=== PATIENT | female | born 1970 | race Caucasian/White ===

== ENCOUNTER 2020-09-28 09:40 | Emergency (ER) | payer OTHER, SELFPAY ==
[2020-09-28 09:55] VITALS: BP 119/66; PULSE 61; RESP 18; TEMP 36.6; O2SAT 98
--- NOTE | 2020-09-28 11:21 | ED.GENADULT ---
HPI - General Adult General Chief complaint: Head Injury Stated complaint: ? Head Injury/PCP sent in Time Seen by Provider: 09/28/20 10:02 Source: patient and RN notes reviewed Mode of arrival: ambulatory Limitations: no limitations History of Present Illness HPI narrative: Patient is a 50-year-old female who presents with head injury complaint that occurred a week ago patient was walking when she hit her head on a bird feeder twice striking the forehead and then hit her head again on a metal bar that they denied any loss of consciousness or syncope patient notes that she has had some mild headache does have a history of concussions denies anticoagulant use and presents in no distress and otherwise resting comfortably with no other complaints patient resting comfortably in the room in no distress is noted Related Data Home Medications Medication Instructions Recorded Confirmed escitalopram oxalate [Lexapro] 20 mg PO DAILY 09/28/20 09/28/20 Review of Systems Review of Systems: All systems reviewed & are unremarkable except as noted in HPI and below PMFSH Past Medical History Medical History (Updated 09/28/20 @ 11:24 by Irwin White PA-C) Macular degeneration Exam Narrative: Exam Narrative: GENERAL: Well-appearing, well-nourished, and in no acute distress. HEAD: Normocephalic, atraumatic. EYES: PERRLA and EOMI. ENT: Nares clear, no rhinorrhea or epistaxis. Mucous membranes moist. CHEST: Clear to auscultation. No respiratory distress. No wheezes rales or rhonchi HEART: Regular rate and rhythm. No murmur heard. EXTREMITIES: Normal range of motion. No edema. No cervical spine tenderness to palpation SKIN: Warm, dry, no rash. NEURO: No focal deficits. Alert and oriented x3. Cranial nerves II through XII grossly intact. Normal speech and gait PSYCH: Normal mood and affect. Course Course Emergency Course: Patient in the room in no distress aware of case findings treatment plan and diagnosis agreeing to follow-up as instructed felt appropriate for outpatient reevaluation ABCs and vital signs intact and stable Vital Signs Vital signs: Vital Signs Temperature 97.8 F 09/28/20 09:55 Pulse Rate 61 09/28/20 09:55 Respiratory Rate 18 09/28/20 09:55 Blood Pressure 119/66 09/28/20 09:55 Pulse Oximetry 98 09/28/20 09:55 Temperature 97.8 F 09/28/20 09:55 Pulse Rate 61 09/28/20 09:55 Respiratory Rate 18 09/28/20 09:55 Blood Pressure 119/66 09/28/20 09:55 Pulse Oximetry 98 09/28/20 09:55 Medical Decision Making MDM Narrative Medical decision making narrative: Patient with minor head injury without loss of consciousness. There are no focal neurological deficits on exam. Subarachnoid hemorrhage is felt to be unlikey at this time. There is no history of fever, and neck is supple without meningismus, making meningitis unlikely. No traumatic history or signs of trauma on exam. No risk factors for CVA, risk factors reviewed. Patient felt appropriate for outpatient reevaluation Vital Signs Vital Signs: Vital Signs Temperature 97.8 F 09/28/20 09:55 Pulse Rate 61 09/28/20 09:55 Respiratory Rate 18 09/28/20 09:55 Blood Pressure 119/66 09/28/20 09:55 Pulse Oximetry 98 09/28/20 09:55 Temperature 97.8 F 09/28/20 09:55 Pulse Rate 61 09/28/20 09:55 Respiratory Rate 18 09/28/20 09:55 Blood Pressure 119/66 09/28/20 09:55 Pulse Oximetry 98 09/28/20 09:55 Discharge Plan Discharge Clinical Impression: Closed head injury Patient Disposition: Home, Self-Care Condition: Stable Instructions: Antibiotic Form, Head Injury (ED) Additional Instructions: Follow up with your primary care doctor in 5-days for re-evaluation. Go to ER for worsening pain, vision changes, nausea/vomiting, fever/chills, weakness, chest pain, shortness of breath, numbness/tingling, slurred speech, difficulty walking, change in mental status etc. or any other concerns. Take a
== END 2020-09-28 11:29 | disposition home or self-care (01) ==
PROVIDERS: Emergency Provider Emergency Medicine; PCP Family Medicine
DX: S09.90XA Unspecified injury of head, initial encounter (principal); H35.30 Unspecified macular degeneration; W22.8XXA Striking against or struck by other objects, initial encounter
CPT/HCPCS: 99283

== ENCOUNTER 2020-10-05 08:22 | Outpatient (CLI) | payer OTHER, SELFPAY ==
--- NOTE | ~2020-10-05 | CT_ITS ---
EXAMINATION: CT brain wo con DATE: 10/05/2020 08:51 INDICATION: Right frontal head injury. Confusion. TECHNIQUE: Computed tomography (CT) of the head was performed without intravenous contrast. The mA wa s adjusted according to patient size. Iterative reconstruction technique was employed. The dose-lengt h product was 605.33 mGy-cm. COMPARISON: None FINDINGS: There is no intracranial hemorrhage, acute infarction, or abnormal intracranial mass lesion . The ventricles are normal in size. The paranasal sinuses are clear. The mastoid air cells are j carlos l. The orbits are normal. IMPRESSION: 1. Normal brain. Reviewed, dictated and finalized at location A. IMPRESSION: 1. Normal brain.
== END 2020-10-05 08:23 | disposition home or self-care (01) ==
LOC: ANHIMG 08:25
PROVIDERS: PCP Family Medicine; Visit Provider Nurse Practitioner
DX: R51.9 Headache, unspecified (principal)
CPT/HCPCS: 70450

== ENCOUNTER 2021-04-22 09:31 | Outpatient (CLI) | payer OTHER, SELFPAY ==
--- NOTE | ~2021-04-22 | CT_ITS ---
EXAMINATION: CT brain wo con DATE: 04/22/2021 10:00 INDICATION: Concussion with loss of consciousness. TECHNIQUE: Computed tomography (CT) of the head was performed without intravenous contrast. The mA wa s adjusted according to patient size. Iterative reconstruction technique was employed. The dose-lengt h product was 605.33 mGy-cm. COMPARISON: Head CT 10/05/2020 FINDINGS: There is no intracranial hemorrhage, acute infarction, or abnormal intracranial mass lesion . The ventricles are normal in size. There is mild mucosal thickening in the paranasal sinuses. The m astoid air cells are normal. There is anteroposterior elongation of the optic globes. IMPRESSION: 1. Normal brain. Reviewed, dictated and finalized at location B. [employer] HE[employer] AND SAFETY PROFESSOR IMPRESSION: 1. Normal brain.
== END 2021-04-22 09:32 | disposition home or self-care (01) ==
LOC: ANHIMG 09:43
PROVIDERS: PCP Family Medicine
DX: S06.0X0A Concussion without loss of consciousness, initial encounter (principal); X58.XXXA Exposure to other specified factors, initial encounter
CPT/HCPCS: 70450

== ENCOUNTER 2022-07-07 08:46 | Outpatient (CLI) | payer OTHER, SELFPAY ==
--- NOTE | ~2022-07-07 | CT_ITS ---
EXAMINATION: CT abdomen w con DATE: 07/07/2022 09:14 INDICATION: Acute abdominal pain, right upper quadrant, epigastric area, radiating to back. Nausea, d iarrhea. TECHNIQUE: Computed tomography (CT) of the abdomen was performed with 100 CC Omnipaque 350 intravenou s contrast. Automated exposure control and iterative reconstruction technique were employed. Exam dos e: 214.83 mGy-cm total exam DLP. COMPARISON: None. FINDINGS: Normal heart size. No pericardial or pleural effusion. The lung bases are clear. Diffuse hepatic steatosis. No hepatic, splenic, pancreatic, and adrenal or renal space-occupying mass lesion. The gallbladder is unremarkable. No bile duct or pancreatic duct dilatation. No renal calculus or hyd roureteronephrosis. Normal caliber of the abdominal aorta. No intraperitoneal or retroperitoneal mass lesion or adenopath y or ascites. No bowel obstruction, bowel wall thickening, pneumatosis or intraperitoneal free air. There are some nondilated fluid containing small bowel is an occasional small bowel air-fluid levels. The appendiceal area is not included in this CT abdomen only examination. Fat-containing umbilical hernia. Severe degenerative disc disease at L5-S1. IMPRESSION: Hepatic steatosis Fluid containing nondilated small bowel with occasional air-fluid levels which may be due to enteriti s or mild adynamic ileus; no bowel obstruction or free air is detected Fat-containing umbilical hernia Severe degenerative disc disease at L5-S1 Reviewed, dictated and finalized at Location A. Reviewed, dictated and finalized at location B. IMPRESSION: Hepatic steatosis Fluid containing nondilated small bowel with occasional air-fluid levels which may be due to enteritis or mild adynamic ileus; no bowel obstruction or free ai r is detected Fat-containing umbilical hernia Severe degenerative disc disease at L5-S1
== END 2022-07-07 08:47 | disposition home or self-care (01) ==
PROVIDERS: PCP Family Medicine; Visit Provider Nurse Practitioner Adult Health
DX: R10.0 Acute abdomen (principal); K76.0 Fatty (change of) liver, not elsewhere classified; K42.9 Umbilical hernia without obstruction or gangrene; M51.37 Other intervertebral disc degeneration, lumbosacral region
CPT/HCPCS: 74160; Q9967

== ENCOUNTER 2022-12-20 09:42 | Emergency (ER) | payer OTHER, SELFPAY ==
[2022-12-20] VITALS (10 sets, daily range): BP systolic 106–136; BP diastolic 53–84; PULSE 54–63; RESP 10–21; TEMP 36.4–36.6; O2SAT 97–100
--- NOTE | ~2022-12-20 | CT_ITS ---
EXAMINATION: CT BRAIN W/O DATE: 12/20/2022 10:46 INDICATION: Dizziness TECHNIQUE: Computed tomography (CT) of the head was performed without intravenous contrast. The dose- length product was 529.67 mGy-cm. Automated exposure control and iterative reconstruction technique w ere employed. COMPARISON: CT dated 04/22/2021 FINDINGS: Normal brain parenchymal volume for age. Normal craft-white differentiation. No acute intrac ranial hemorrhage, infarction, mass or mass effect. No ventriculomegaly or midline shift. Midline sagittal images demonstrate a normal corpus callosum, c raniovertebral junction and sella turcica. Basilar cisterns are patent. Paranasal sinuses and mastoids are pneumatized. No depressed skull fractures. IMPRESSION: 1. No acute intracranial abnormality. Reviewed, dictated and finalized at location B.
--- NOTE | 2022-12-20 09:44 | ECG_ITS ---
Measurements Intervals Rankin Rate: 59 P: 68 NH: 175 QRS: 59 QRSD: 80 T: 41 QT: 365 QTc: 362 Interpretive Statements SINUS BRADYCARDIA BORDERLINE T WAVE ABNORMALITY- ANTERIOR LEADS BORDERLINE ECG NO PREVIOUS ECG AVAILABLE FOR COMPARISON Electronically Signed On 12-20-2022 10:36:57 CDT by Catarino Wells D.O.
[2022-12-20 10:16] LABS: Basophils Percent Auto 0.4 % (0.2-1.2); Eosinophils Absolute Auto 0.1 K/mm3 (0-0.3); Eosinophils Percent Auto 2.1 % (0-4.4); Hemoglobin 12.8 g/dL (12.0-15.0); Immature Granulocyte Absolute 0.01 K/mm3 (0.00-0.031); Immature Granulocyte Percent A 0.2 % (0-0.5); Lymphocytes Absolute Auto 1.79 K/mm3 (0.9-3.2); Lymphocytes Percent Auto 33.7 % (18.3-44.2); Mean Corpuscular HGB Conc 32.8 g/dl (32-36); Mean Corpuscular Hemoglobin 29.7 pg (26-34); Mean Corpuscular Volume 90.5 fl (80-100); Mean Platelet Volume 10.6 fl (7.4-10.4); Monocytes Absolute Auto 0.6 K/mm3 (0.1-0.6); Monocytes Percent Auto 10.4 % (2.6-8.5); Neutrophils Absolute Auto 2.8 K/mm3 (1.3-6.7); Neutrophils Percent Auto 53.2 % (45.5-73.1); Platelet Count Result 225 k/mm3 (150-375); Red Blood Count 4.31 M/mm3 (4.2-5.4); Red Cell Distribution Width 12.5 % (11.5-14.5); White Blood Count 5.3 K/mm3 (4.5-10.0)
[2022-12-20 10:26] LABS: Alanine Aminotransferase 47 U/L (6-35); Albumin Level 4.5 g/dL (3.5-5.1); Alkaline Phosphatase 63 U/L (38-126); Anion Gap 7 mmol/L (8-16); Aspartate Amino Transferase 39 U/L (14-36); Bilirubin,Total 0.5 mg/dL (0.2-1.3); Blood Urea Nitrogen 22 mg/dL (7-17); Calcium 9.6 mg/dL (8.4-10.2); Carbon Dioxide 30 mmol/L (22-30); Chloride 102 mmol/L (98-107); Estimated CRCL calculation 79 ml/min; Estimated Glomerular Filt Rate > 60; Glucose 72 mg/dL (65-110); Potassium 4.3 mmol/L (3.4-5.0); Sodium 139 mmol/L (137-145)
--- NOTE | 2022-12-20 10:44 | ED.DIZZY ---
HPI - Dizziness General Chief Complaint: Syncope Stated Complaint: dizzy spells, pressure in head Time Seen by Provider: 12/20/22 10:09 History of Present Illness HPI Narrative: 52-year-old female history of postconcussive syndrome from an injury that occurred 2 years ago presents to the emergency room for sustained dizziness for several days. Patient denies any inciting event. States the dizziness is not alleviated or aggravated by any factors. Denies any nausea vomiting. States she occasionally. Patient also states that recently she has been experiencing episodes of inability to find her words when talking people. Denies any unilateral weakness. Denies any new vision or hearing changes. Related Data Home Medications Medication Instructions Recorded Confirmed escitalopram oxalate 20 mg tablet 20 mg PO DAILY 09/28/20 09/28/20 (Lexapro) verapamil 2.5 mg/mL intravenous mg 12/20/22 solution Allergies Allergy/AdvReac Type Severity Reaction Status Date / Time bee venom protein (honey bee) AdvReac Anaphylactic Verified 12/20/22 10:14 Shock Review of Systems Review of Systems: CONSTITUTIONAL: Denies fever, chills, or sweats. EYES: Denies visual changes, redness, or discharge. ENT: Denies rhinorrhea, congestion, sore throat, or otalgia. CARDIOVASCULAR: Reports occasional palpitations RESPIRATORY: Denies cough or dyspnea. GASTROINTESTINAL: Denies abdominal pain, nausea, vomiting, or diarrhea. GENITOURINARY: Denies dysuria or hematuria. SKIN: Denies rash or itching. MUSCULOSKELETAL: Denies back pain, joint pain, or myalgia. NEUROLOGIC: Reports dizziness PSYCHIATRIC: Denies anxiety or depression. ON LICENSE OF [facility] Past Medical History Medical History Macular degeneration Exam Narrative: GENERAL: Well-appearing, well-nourished, no physical limitations, and in no acute distress. HEAD: Normocephalic, atraumatic. EYES: Conjunctivae normal, PERRLA and EOMI. ENT: External ears normal, bilateral TMs normal bilaterally NECK: Supple. CHEST: Clear to auscultation. No respiratory distress. No wheezes rales or rhonchi. HEART: Regular rate and rhythm. No murmur heard. Normal peripheral pulses. EXTREMITIES: Normal range of motion. No edema. No clubbing or cyanosis SKIN: Warm, dry, no rash. No noted wounds NEURO: No focal deficits. Alert and oriented x3. MAEW. CN's II-XI intact bilaterally, normal gait PSYCH: Cooperative. Normal mood and affect. Course Course Emergency Course: 1310: Case with patient's neurologist, Dr. Beltran. He states he will see the patient in his office in 1 to 2 weeks and to trial the patient with meclizine as needed. Discussed findings with patient will discharge home stable condition Vital Signs Vital signs: Vital Signs Temperature 36.4 C L 12/20/22 09:47 Pulse Rate 63 12/20/22 09:47 Respiratory Rate 16 12/20/22 09:47 Blood Pressure 125/75 12/20/22 09:47 Pulse Oximetry 100 12/20/22 09:47 Oxygen Delivery Room Air 12/20/22 09:47 Temperature 36.6 C 12/20/22 10:50 Pulse Rate 62 12/20/22 12:01 Respiratory Rate 18 12/20/22 12:01 Blood Pressure 106/74 12/20/22 12:01 Pulse Oximetry 98 12/20/22 12:01 Oxygen Delivery Room Air 12/20/22 09:47 MDM - Dizziness Lab Data 12/20/22 10:11 12/20/22 10:11 Labs: Lab Results 12/20/22 12/20/22 Range/Units 10:10 10:11 WBC 5.3 (4.5-10.0) K/mm3 RBC 4.31 (4.2-5.4) M/mm3 Hgb 12.8 (12.0-15.0) g/dL Hct 39.0 (37.0-47.0) % MCV 90.5 (80-100) fl MCH 29.7 (26-34) pg MCHC 32.8 (32-36) g/dl RDW 12.5 (11.5-14.5) % Plt Count 225 (150-375) k/mm3 MPV 10.6 H (7.4-10.4) fl Immature Gran % (Auto) 0.2 (0-0.5) % Neut % (Auto) 53.2 (45.5-73.1) % Lymph % (Auto) 33.7 (18.3-44.2) % Overton % (Auto) 10.4 H (2.6-8.5) % Eos % (Auto) 2.1 (0-4.4) % Baso % (Auto) 0.4 (0.2-1.
[2022-12-20 10:58] LABS: Troponin I < 0.012 ng/mL (0.000-0.034)
== END 2022-12-20 13:21 | disposition home or self-care (01) ==
PROVIDERS: Emergency Medicine; Emergency Provider Nurse Practitioner Family; PCP Family Medicine
DX: R42 Dizziness and giddiness (principal); H35.30 Unspecified macular degeneration; R00.1 Bradycardia, unspecified; R94.31 Abnormal electrocardiogram [ECG] [EKG]
CPT/HCPCS: 36415; 70450; 80053; 84484; 85025; 93005; 99284

== ENCOUNTER 2025-03-24 13:33 | Outpatient (CLI) | payer OTHER, SELFPAY ==
--- NOTE | ~2025-03-24 | XR_ITS ---
XR lumbar spine min 4V Indication: low back pain, multiple sites, chronic, nki Comparison: None Findings: The vertebral heights are intact. No fracture or subluxation. Moderate to severe loss of disc height at L5-S1. Soft tissues unremarkable Impression: No acute abnormality. Reviewed, dictated and finalized at location [facility] Impression: No acute abnormality.
--- NOTE | ~2025-03-24 | XR_ITS ---
EXAMINATION: XR sacroiliac joints min 3V, 03/24/2025 13:57 [facility] [facility] HISTORY: low back pain, multiple sites, CHRONIC, NKI COMPARISON: No comparisons available. Findings: No acute fracture or malalignment. Sclerosis of the sacroiliac joints, no bridging osteophyte formation or erosions identified Soft tissues unremarkable. Impression: No acute fracture or malalignment. Reviewed, dictated and finalized at location P. [facility] Impression: No acute fracture or malalignment.
--- OUTSIDE RECORDS SUMMARY | 2025-03-24 15:45 | XMS_ITS | Encounter Summary ---
Author Organization [facility] Address [address] [place] [address] Phone Care Team Providers Care Medical Safety Director Name Role Phone Chase Cobb MD Primary Care Provider + [phone] Christos Beltran MD Unavailable [phone] Leroy Araujo MD Primary Care Provider [phone] Leslie Jones APRN, [facility] Unavailable [phone]- [phone] Luis Alfredo Torres MD Unavailable Encounter Details Date Type Department Care Team (Late st Contact Info) Description 02/01/2021 Transcribe Orders [facility] Laboratory Services [address] [place] [address] Dejon Quezada MD Social History Tobacco Use Types Packs/Day Years Used Date Smoking Tobacco: Never Assessed Comments Unknown Sex and Gender Information Value Date Recorded Sex Assigned at Not on file Legal Sex Female 10:13 PM CDT Gender Identity Not on file Sexual Orientation Not on file documented as of this encounter Plan of Treatment Upcoming Encounters Date Type Department Care Team (Late st Contact Info) Description 03/25/2025 1:15 PM SPECIAL FORCES MEDICAL SERGEANT Physical Therapy [facility] [address] [facility], [facility] [address] [place] [phone] Leroy Araujo MD [address] [facility] [address] [place] [address] Monica Alonzo, PT [place] 04/03/2025 2:00 PM SPECIAL FORCES MEDICAL SERGEANT Physical Therapy [facility] [address] [facility], [place] [address] [address] Leroy Araujo MD #[address] [address] Tiffanie White, PT [place] 04/15/2025 2:45 PM SPECIAL FORCES MEDICAL SERGEANT Physical Therapy [facility] [address] [facility], [place] [address] [phone] Leroy Araujo MD [address] [address] Monica Alonzo, PT [place] 04/22/2025 3:30 PM SPECIAL FORCES MEDICAL SERGEANT Physical Therapy [facility] [address] [facility], [place] [address] [address] Leroy Araujo MD [address] [address] Monica Alonzo, PT [place] 04/29/2025 2:45 PM SPECIAL FORCES MEDICAL SERGEANT Physical Therapy [facility] [address] [facility], [place] [address] [phone] Leroy Araujo MD [address] [address] Monica Alonzo, PT [place] documented as of this encounter Visit Diagnoses Not on filedocumented in this encounter Care Teams Medical Safety Director Relationship Specialty Start Date End Date Chase Cobb MD [address] [address] PCP - General Family Medicine 07/06/21 05/07/23 Leroy Araujo MD #[address] [address] PCP - General Family Medicine 05/08/23 Christos Beltran MD [address] [place] [address] Consulting Physician Neurology 07/06/21 Leslie Jones, ICE CREAM SCOOPER, ADMINISTRATIVE ASST [address] [place] [address] Nurse Practitioner Advanced Practice Nurse 01/18/22 Luis Alfredo Torres MD [address] [address] Consulting Physician Colon and Rectal Surgery 06/26/23 documented as of this encounter
--- OUTSIDE RECORDS SUMMARY | 2025-03-24 15:45 | XMS_ITS | Encounter Summary ---
Author Organization [facility] Address [address] [place] [address] Phone Care Team Providers Care Interlocker Name Role Phone Chase Cobb MD Primary Care Provider + [phone] Christos Beltran MD Unavailable [phone] Leroy Araujo MD Primary Care Provider [phone] Leslie Jones APRN, DESULPHURIZER OPERATOR Unavailable + [phone] Luis Alfredo Torres MD Unavailable Reason for Visit * Reason Comments Medication Refill Encounter Details Date Type Department Care Team (Late Contact Info) Description 10/16/2022 Refill [facility] - Neurology [facility] [address] [place] [address] Leslie Jones, GITA, DESULPHURIZER OPERATOR [address] [place] [address] Medication Refill Social History Tobacco Use Types Packs/Day Years Used Date Smoking Tobacco: Never Smokeless Tobacco: Never Alcohol Use Standard Drinks/Week Comments Yes 0 (1 standard drink = 0.6 oz pur e alcohol) occasional Comments No Sex and Gender Information Value Date Recorded Sex Assigned at Not on file Legal Sex Female 10:13 PM CDT Gender Identity Not on file Sexual Orientation Not on file documented as of this encounter Plan of Treatment Upcoming Encounters Date Type Department Care Team (Late Contact Info) Description 03/25/2025 1:15 PM MACHINE PACKAGE SEALER Physical Therapy [facility] [address] [facility], [place] [address] [place] [address] Leroy Araujo MD #[address] [address] Monica Alonzo, PT [place] 04/03/2025 2:00 PM MACHINE PACKAGE SEALER Physical Therapy [facility] [address] [facility], [place] [address] [place] [address] Leroy Araujo MD #[address] [address] Tiffanie White, PT [place] 04/15/2025 2:45 PM MACHINE PACKAGE SEALER Physical Therapy [facility] at [address], [place] [address] [place] [address] Leroy Araujo MD #[address] [address] Monica Alonzo, PT [place] 04/22/2025 3:30 PM MACHINE PACKAGE SEALER Physical Therapy [facility] [address] [facility], [place] [address] [place] [address] Leroy Araujo MD #[address] [address] Monica Alonzo, PT [place] 04/29/2025 2:45 PM MACHINE PACKAGE SEALER Physical Therapy [facility] [address], [place] [address] [place] [address] Leroy Araujo MD #[address] [address] Monica Alonzo, PT [place] documented as of this encounter Visit Diagnoses Diagnosis Post concussion syndrome Postconcussion syndrome documented in this encounter Care Teams Interlocker Relationship Specialty Start Date End Date Chase Cobb MD [address] [address] PCP - General Family Medicine 07/06/21 05/07/23 Leroy Araujo MD #[address] [address] PCP - General Family Medicine 05/08/23 Christos Beltran MD [address] [place] [address] Consulting Physician Neurology 07/06/21 Leslie Jones, CYBER DEFENSE FORENSICS ANALYST, DESULPHURIZER OPERATOR [address] [place] [address] Nurse Practitioner Advanced Practice Nurse 01/18/22 Luis Alfredo Torres MD #[address] [address] Consulting Physician Colon and Rectal Surgery 06/26/23 documented as of this encounter
--- OUTSIDE RECORDS SUMMARY | 2025-03-24 15:45 | XMS_ITS | Encounter Summary ---
Author Organization [facility] Address [address] [place] [address] Phone Care Team Providers Care Archives Specialist Name Role Phone Chase Cobb MD Primary Care Provider + [phone] Christos Beltran MD Unavailable [phone] Leroy Araujo MD Primary Care Provider [phone] Leslie Jones APRN, CARROT TIER Unavailable + [phone] Luis Alfredo Torres MD Unavailable Reason for Visit * Reason Comments Medication Refill Encounter Details Date Type Department Care Team (Late st Contact Info) Description 06/30/2022 Refill [facility] - Neurology [facility] [address] [place] [phone] Leslie Jones, GITA, CARROT TIER [address] [place] [address] Medication Refill Social History Tobacco Use Types [...] on file Sexual Orientation Not on file COVID-19 Exposure Response Date Recorded In the last 10 days, have yo u been in contact with someone who was confirmed or suspected to have Coronavirus/COVID-19? No / Unsure 06/30/2022 2:55 PM CDT documented as of this encounter Plan of Treatment Upcoming Encounters Date Type Department Care Team (Late st Contact Info) Description 03/25/2025 1:15 PM LAB INTERN Physical Therapy [facility] [address], [place] [address] [address] Leroy Araujo MD #[address] [address] Monica Alonzo, PT [place] 04/03/2025 2:00 PM LAB INTERN Physical Therapy [facility] [address], [place] [address] [address] Leroy Araujo MD #[address] [address] Tiffanie White, PT [place] 04/15/2025 2:45 PM LAB INTERN Physical Therapy [facility] [address], [place] [address] [place] [address] Lreoy Araujo MD #[address] [address] Monica Alonzo, PT [place] 04/22/2025 3:30 PM LAB INTERN Physical Therapy [facility] at [address], [place] [address] [address] Leroy Araujo MD #[address] [address] Monica Alonzo, PT [place] 04/29/2025 2:45 PM LAB INTERN Physical Therapy [facility] at [address] [address] Leroy Araujo MD #[address] [address] Monica Alonzo, PT [place] documented as of this encounter Visit Diagnoses Diagnosis Post concussion syndrome Postconcussion syndrome documented in this encounter Care Teams Archives Specialist Relationship Specialty Start Date End Date Chase Cobb MD [address] [address] PCP - General Family Medicine 07/06/21 05/07/23 Leroy Araujo MD #[address] [address] PCP - General Family Medicine 05/08/23 Christos Beltran MD [address] [place] [address] Consulting Physician Neurology 07/06/21 Leslie Jones, TEST PULLER, CARROT TIER [address] [place] [address] Nurse Practitioner Advanced Practice Nurse 01/18/22 Luis Alfredo Torres MD #[address] [address] Consulting Physician Colon and Rectal Surgery 06/26/23 documented as of this encounter
--- OUTSIDE RECORDS SUMMARY | 2025-03-24 15:45 | XMS_ITS | Encounter Summary ---
Author Organization [facility] Address [address] [place] [address] Phone Care Team Providers Care Grease Cup Filler Name Role Phone Christos Beltran MD Unavailable [phone] Leroy Araujo MD Primary Care Provider [phone] Leslie Jones APRN, [facility] Unavailable + [phone] Luis Alfredo Torres MD Unavailable Reason for Visit * Reason Comments Medication Refill Encounter Details Date Type Department Care Team (Late st Contact Info) Description 08/30/2024 Refill [facility] - Family Medicine [facility] #[address] [place] [address] Leroy Araujo MD #[address] [address] Medication Refill Social History Tobacco Use Types Packs/Day Years Used Date Smoking Tobacco: Never Smokeless Tobacco: Never Alcohol Use Standard Drinks/Week Comments Yes 0 (1 standard drink = 0.6 oz pur e alcohol) occasional PHQ-2 Answer Date Recorded Total Score - Questions 1-9 0 11/07 Sexually Active Control Partners Comments Yes Male Comments No Sex and Gender Information Value Date Recorded Sex Assigned at Not on file Legal Sex Female 10:13 PM CDT Gender Identity Not on file Sexual Orientation Not on file documented as of this encounter Miscellaneous Notes * Telephone Encounter - Sugey Morgan RN - 09/02/2024 9:23 AM CDT Images from the original note were not included. Meloxicam Dispensed Days Supply Quantity Provider Pharmacy MELOXICAM 15MG TABLETS 08/21/2024 90 90 Each Leroy Araujo MD [facility] #... MELOXICAM 15MG TABLETS 05/19/2024 90 90 Each Leroy Araujo MD [facility] #... documented in this encounter Plan of Treatment Upcoming Encounters Date Type Department Care Team (Late st Contact Info) Description 03/25/2025 1:15 PM GLASS CUT OFF SUPERVISOR Physical Therapy [facility] [address] [facility], [place] [address] [address] Leroy Araujo MD #[address] [address] Monica Alonzo, PT [place] 04/03/2025 2:00 PM GLASS CUT OFF SUPERVISOR Physical Therapy [facility] at [address], [place] [address] [address] Leroy Araujo MD #[address] [address] Tiffanie White, PT [place] 04/15/2025 2:45 PM GLASS CUT OFF SUPERVISOR Physical [facility] 200 [facility], [place] [address] [address] Leroy Araujo MD #[address] [address] Monica Alonzo, PT [place] 04/22/2025 3:30 PM GLASS CUT OFF SUPERVISOR Physical Therapy [facility] 200 [facility], [place] [address] [place] [address] Leroy Araujo MD #2 [facility] [address] [place] [address] Monica Alonzo, PT [place] 04/29/2025 2:45 PM GLASS CUT OFF SUPERVISOR Physical Therapy [facility] 200 [facility], [place] [address] [place] [address] Leroy Araujo MD #2 [facility] [address] [place] [address] Monica Alonzo, PT [place] documented as of this encounter Visit Diagnoses Not on filedocumented in this encounter Additional Health Concerns Assessment Noted Time PHQ-9 Depression Total Score: 0 11/26/19 24 1:36 PM CDT documented as of this encounter Care Teams Grease Cup Filler Relationship Specialty Start Date End Date Leroy Araujo MD #2 [facility] 205 [place] [address] PCP - General Family Medicine 05/08/23 Christos Beltran MD #2 [place] [address] Consulting Physician Neurology 07/06/21 Leslie Jones APRN, REHABILITATION PROGRAM MANAGER #2 [place] [address] Nurse Practitioner Advanced Practice Nurse 01/18/22 Luis Alfredo Torres MD #2 [facility] [address] [place] [address] Consulting Physician Colon and Rectal Surgery 06/26/23 documented as of this encounter
--- OUTSIDE RECORDS SUMMARY | 2025-03-24 15:45 | XMS_ITS | Encounter Summary ---
Author Organization [facility] Address [address] [place] [address] Phone Care Team Providers Care Clod Puller Name Role Phone Chase Cobb MD Primary Care Provider [phone] Christos Beltran MD Unavailable [phone] Leroy Araujo MD Primary Care Provider [phone] Leslie Jones APRN, RUBBER COMPOUNDER Unavailable + [phone] Luis Alfredo Torres MD Unavailable Reason for Visit * Reason Comments Medication Refill Encounter Details Date Type Department Care Team (Late st Contact Info) Description 10/14/2022 Refill [facility] - [facility]rology [facility] #2 [place] [id number] Leslie Jones, GITA, RUBBER COMPOUNDER [address] [place] [address] Medication Refill Social History Tobacco Use Types [...] encounter Miscellaneous Notes * Telephone Encounter - Berenice Cortez RN - 10/16/2022 2:12 PM CDT Medication failed the protocol, provider to review and approve the medication order if appropriate. Requested Prescriptions Pending Prescriptions Disp Refills divalproex (DEPAKOTE) 125 MG Tablet Delayed Response [Pharmacy Med Name: DIVALPROEX DELAYED [id number]] 60 Tablet 1 Sig: Take 1 Tablet by mouth in the morning and at bedtime. Not Delegated - Anticonvulsants Excluding Benzodiazepines Protocol Failed - 10/14/2022 8:57 PM Failed - This refill cannot be delegated Passed - Visit with relevant provider in past 12 months or upcoming 90 days Recent Visits Date Type Provider Dept 09/13/22 Office Visit Leslie Jones APRN, [facility] Neurology [facility] 06/30/22 Telemedicine Leslie Jones APRN, [facility] 03/23/22 Office Visit Leslie Jones APRN, [facility] 01/18/22 Office Visit Leslie Jones APRN, [facility] 10/18/21 Office Visit Leslie Jones APRN, [facility] Showing recent visits within past 365 days and meeting all other requirements Future Appointments Date Type Provider Dept 11/24/22 Appointment Christos Beltran MD [facility] Showing future appointments within next 90 days and meeting all other requirements documented in this encounter Plan of Treatment Upcoming Encounters Date Type Department Care Team (Late st Contact Info) Description 03/25/2025 1:15 PM PV DESIGN AND INSTALLATION TECHNICIAN [facility] 200 [facility] [address] [place] [address] Leroy Araujo MD #2 [facility] [address] [place] [address] Monica Alonzo, PT [place] 04/03/2025 2:00 PM PV DESIGN AND INSTALLATION TECHNICIAN [facility] 200 [facility], [address] [address] Leroy Araujo MD #[address] [address] Tiffanie White, PT [place] 04/15/2025 2:45 PM PV DESIGN AND INSTALLATION TECHNICIAN [facility] [address], [address] [address] Leroy Araujo MD #[address] [address] Monica Alonzo, PT [place] 04/22/2025 3:30 PM PV DESIGN AND INSTALLATION TECHNICIAN [facility] [address], [address] [address] Leroy Araujo MD #[address] [address] Monica Alonzo, PT [place] 04/29/2025 2:45 PM PV DESIGN AND INSTALLATION TECHNICIAN [facility] [address], [address] [address] Leroy Araujo MD #[address] [address] Monica Alonzo, PT [place] documented as of this encounter Visit Diagnoses Diagnosis Post concussion syndrome Postconcussion syndrome documented in this encounter Care Teams Clod Puller Relationship Specialty Start Date End Date Chase Cobb MD [facility] ADWOA JAY [address] [phone] PCP - General Family Medicine 07/06/21 05/07/23 Leroy Araujo MD #[address] [address] PCP - General Family Medicine 05/08/23 Christos Beltran MD #2 [place] [address] Consulting Physician Neurology 07/06/21 Leslie Jones APRN, RUBBER COMPOUNDER #[address] [place] [address] Nurse Practitioner Advanced Practice Nurse 01/18/22 Luis Alfredo Torres MD #[address] [address] Consulting Physician Colon and Rectal Surgery 06/26/23 documented as of this encounter
--- OUTSIDE RECORDS SUMMARY | 2025-03-24 15:45 | XMS_ITS | Encounter Summary ---
Author Organization [facility] Address [address] [place] [address] Phone Care Team Providers Care Second Cutter Name Role Phone Christos Beltran MD Unavailable [phone] Leroy Araujo MD Primary Care Provider [phone] Leslie Jones APRN, [facility] Unavailable + [phone] Luis Alfredo Torres MD Unavailable Reason for Visit * Reason Comments Medication Refill Encounter Details Date Type Department Care Team (Late st Contact Info) Description 02/12/2025 Refill [facility] - Family Medicine [facility] #2 [place] [address] Leroy Araujo MD #[address] [address] Medication Refill Social History Tobacco [...] Telephone Encounter - Sugey Morgan RN - 02/12/2025 2:09 PM CST Images from the original note were not included. Escitalopram Oxalate Dispensed Days Supply Quantity Provider Pharmacy ESCITALOPRAM 10MG TABLETS 02/08/2025 90 90 Each Leroy Araujo MD [facility] #... ESCITALOPRAM 10MG TABLETS 11/12/2024 90 90 Each Leroy Araujo MD [facility] #... T PREP TECHNICIAN documented in this encounter Plan of Treatment Upcoming Encounters Date Type Department Care Team (Late st Contact Info) Description 03/25/2025 1:15 PM PAINT PREP TECHNICIAN [facility] [address], [place] [address] [place] [address] Leroy Araujo MD #[address] [address] Monica Alonzo, PT [place] 04/03/2025 2:00 PM PAINT PREP TECHNICIAN [facility] [address], [place] [address] [place] [address] Leroy Araujo MD #[address] [address] Tiffanie White, PT [place] 04/15/2025 2:45 PM PAINT PREP TECHNICIAN [facility] [address], [place] [address] [place] [address] Leroy Araujo MD #[address] [address] Monica Alonzo, PT [place] 04/22/2025 3:30 PM PAINT PREP TECHNICIAN [facility] [address], [place] [address] [place] [address] Leroy Araujo MD #2 [facility] 205 [place] [address] Monica Alonzo, PT [place] 04/29/2025 2:45 PM PAINT PREP TECHNICIAN [facility] 200 [facility], [facility] [address] [place] [address] Leroy Araujo MD #2 [facility] [address] [place] [address] Monica Alonzo, PT [place] documented as of this encounter Visit Diagnoses Not on filedocumented in this encounter Additional Health Concerns Assessment Noted Time PHQ-9 Depression Total Score: 0 11/26/19 1:36 PM CDT documented as of this encounter Care Teams Second Cutter Relationship Specialty Start Date End Date Leroy Araujo MD #2 [facility] [address] [place] [address] PCP - General Family Medicine 05/08/23 Christos Beltran MD #2 [place] [address] Consulting Physician Neurology 07/06/21 Leslie Jones APRN, SLUBBER MACHINE OPERATOR #[address] [place] [address] Nurse Practitioner Advanced Practice Nurse 01/18/22 Luis Alfredo Torres MD #2 [facility] [address] [place] [address] Consulting Physician Colon and Rectal Surgery 06/26/23 documented as of this encounter
--- OUTSIDE RECORDS SUMMARY | 2025-03-24 15:45 | XMS_ITS | Patient Health Record ---
Author Organization [facility] Billing Info Address [address] [place] [address] Phone [phone] Care Team Providers Care Pump Stitcher Name Role Phone Nicky Goldstein Primary Care Provider Unavailabl e Reason For Referral No Information Medications Medication SIG (Take, Route, Frequency, Duration) Notes Start Date End Date Diagnosis (ICD Code) Status Multi Vitamin - Tablet 1 tablet Orally Once a day; Duration: 30 day(s) Active Lexapro 20 MG Tablet 1 tablet Orally Once a day; Duration: 30 day(s) Active Social History Tobacco Use: Social History Observation Description Date Details (start date - stop date) Never Smoker NA - NA Sex Observation Social History Observation Description Sex Observation Female Social History Social History Social Info Question Answer Notes Tobacco Status: Patient is a never smoker Illicit Drug Use: Patient/Family reports: No illicit drug use Alcohol Use: Patient uses alcohol occasional *DO NOT USE * Tobacco Status (CQW): Patient is Never smoker Additional Details Category Social Info Options Details Social History 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 Children: yes, 1-son Marital Status: Lives with: spouse, children Drugs: none Problems Problem Type SNOMED Code ICD Code Dates Problem Status W/U Status Risk Notes Problem Palpitations (23661720) Palpitations (R00.2) Added On:2018 Active confirmed Problem Atypical chest pain (166428502) Atypical chest pain (R07.89) Added On:2018 Active confirmed Plan Of Treatment No Information Insurance Providers Payer Name Payer Address Payer Phone Subscriber Number Group Number Insured Name Patient Relationship to Insured Coverage Start Date Coverage End Date [facility] [address] TENZIN MATOS [id number] Kirill Cowan Spouse - patient is the spouse of the insured 9 [phone] Medical (General) History Medical History History ICD Code Atypical chest pain R07.89 Palpitations R00.2 Surgical History Surgery Date(Month/Year) hysterectomy, partial
--- OUTSIDE RECORDS SUMMARY | 2025-03-24 15:45 | XMS_ITS | Clinical Summary ---
Author Organization [facility] Address [address] [place] [address] Phone Care Team Providers Care Clinical Trials Manager Name Role Phone Christos Beltran MD Unavailable [phone] Leroy Araujo MD Primary Care Provider [phone] Leslie Jones APRN, EMERGENCY REGISTRAR Unavailable + [phone] Luis Alfredo Torres MD Unavailable Allergies Active Allergy Reactions Criticality Noted Date Comments Erythromycin Vomiting 07/02/2004 Medications Omeprazole 20 MG Tablet Delayed Response Take by mouth as needed. Active fluticasone (FLONASE) 50 MCG/ACT Suspension 1-2 Sprays by Nasal route as needed. Use in each nostril as directed. Active Multiple Vitamins-Minera ls (Multi Vitamin/Mineral s) Tablet Take 1 Tablet by mouth. Active Calcium Carbonate (CALCIUM 500 PO) Take by mouth. Active methocarbamol (Robaxin) 500 MG TabletIndicatio ns:Cervical stenosis of spine Take 2 Tablets by mouth 4 times daily. 120 Tablet 2 Active Acetaminophen (TYLENOL PO) Take by mouth. As needed Active Rizatriptan Benzoate 5 MG TABLET DISPERSIBLEIndi cations:Acute migraine Take 1 Tablet by mouth once as needed for Migraine or Headaches. 10 Tablet 3 5 Active meloxicam (MOBIC) 15 MG Tablet Take 1 Tablet by mouth daily. 90 Tablet 3 5 Active escitalopram (LEXAPRO) 10 MG Tablet Take 1 Tablet by mouth daily. 90 Tablet 3 5 Active escitalopram (LEXAPRO) 10 MG Tablet TAKE 1 TABLET BY MOUTH DAILY 90 Tablet 1 5 03/17/20 25 Discontinue d(Reorder) Amoxicillin 500 MG TabletIndicatio ns:dental Take 1 Tablet by mouth 3 times daily for 7 days. Indications: dental 21 Tablet 5 03/02/20 25 Active Problems No known active problems Encounters Date Type Department Care Team Description 03/19/2025 1:45 PM DISTRICT ASSOCIATE JUDGE Physical Therapy [facility] [address], [place] [address] [place] [phone] Leroy Araujo MD Young, Susan E, PT Low back pain at multiple sites (Primary Dx) Discharge Disposition: Discharged to home or Selfcare 03/19/2025 Telephone [facility] [address] [place] [phone] Leroy Araujo MD Prior Authorization 03/17/2025 3:45 PM DISTRICT ASSOCIATE JUDGE Office Visit [facility] - [facility] [address] [place] [phone] Leroy Araujo MD Low back pain at multiple sites (Primary Dx); SI (sacroiliac) pain Discharge Disposition: Discharged to home or Selfcare 03/17/2025 Travel 03/11/2025 2:45 PM DISTRICT ASSOCIATE JUDGE Physical Therapy [facility] [address], [place] [address] [place] [phone] Leroy Araujo MD Bogowith, Kelly A, PT Low back pain at multiple sites (Primary Dx) Discharge Disposition: Discharged to home or Selfcare 03/11/2025 Travel 02/25/2025 4:15 PM DISTRICT ASSOCIATE JUDGE Physical Therapy [facility] [address], [place] [address] [place] [address] Leroy Araujo MD Bogowith, Kelly A, PT Low back pain at multiple sites (Primary Dx) Discharge Disposition: Discharged to home or Selfcare 02/23/2025 5:00 PM DISTRICT ASSOCIATE JUDGE Office Visit [facility] [address] [place] [address] Jeanette Rimma Yeison, CLASSICS PROFESSOR, AUTOMOBILE RENTAL CLERK Dental infection (Primary Dx) Discharge Disposition: Discharged to home or Selfcare 02/23/2025 Travel 02/23/2025 Nurse [facility]riage [facility] [address] [place] [address] Leroy Araujo MD Appointment; Jaw Pain 02/18/2025 4:00 PM DISTRICT ASSOCIATE JUDGE Physical Therapy [facility] [address], [place] [address] [address] Leroy Araujo MD Khan, Jennifer M, PT Low back pain at multiple sites (Primary Dx) Discharge Disposition: Discharged to home or Selfcare 02/18/2025 Travel 02/12/2025 Refill [facility] [address] [place] [address] Leroy Araujo MD Medication Refill 01/14/2025 1:15 PM CDT Office Visit [facility] [address] [place] [address] Leroy Araujo MD Low back pain at multiple sites (Primary Dx); Anxiety Discharge Disposition: Discharged to home or Selfcare 01/14/2025 Travel 01/14/2025 Nurse Triage [facility] [address] [place] [address] Leroy Araujo MD Advice Only; Hip Pain from Last 3 Months Immunizations Immunization Administration Dates Next Due Covid-19, Mrna, Lnp-s, Pf, T ris-sucrose, 30 Mcg/0.3 Ml ([employer]) 03/25/2023 Influenza Vaccine, MDCK,quad rivalent, pres free 02/18/2022 Influenza Vaccine, Quadrivalent, PF 05/08/2023,0 04/18/2019,04/19/2017 Influenza Vaccine,unspecified Formulation 2011 Influenza Virus Vaccine, Whole Virus 02/23/2014 Influenza, Seasonal, Injectable, Undefined 03/15 Influenza,Split Virus,Trivalent,Injectable,PF 01/14/2025,06/12/2024 TDAP Vaccine 06/12/2009 Td Vaccine (preservative free) 06/12/2024 Tuberculin Skin Test; Purifi ed Protein Derivative Solutiol 03/27/2011 Zoster Vaccine Recombinant 03/15/2023 Family History Medical History Relation Name Comments Arthritis Father Huber Cancer Father Huber High Cholesterol Father Huber Hypertension Father Huber Lung Cancer Father Huber No Known Problems Half-Brother 1 No Known Problems Half-Brother 2 No Known Problems Half-Brother 3 Arthritis Mother Tanisha High Cholesterol Mother Tanisha Hypertension Mother Tanisha Seizures Paternal Grandmother Leoria Stroke Paternal Grandmother Leoria Other-comment Sister 1 chronic pain Bipolar Disorder Sister 2 ADD / ADHD Son Anxiety disorder Son Relation Name Status Comments Father Huber Half-Brother 1 Alive Half-Brother 2 Alive Half-Brother 3 Alive Mother Tanisha Alive Paternal Grandmother Leoria Alive Sister 1 Alive Sister 2 Alive Son Alive Social History Tobacco Use Types Packs/Day Years Used Date Smoking Tobacco: Never Smokeless Tobacco: Never Tobacco Cessation:Counseling Given: No Alcohol Use Standard Drinks/Week Comments Yes 0 (1 standard drink = 0.6 oz pur e alcohol) occasional PHQ-2 Answer Date Recorded Total Score - Questions 1-9 0 12/2024 Sexually Active Control Partners Comments Yes Male Comments No Sex and Gender Information Value Date Recorded Sex Assigned at Not on file Legal Sex Female 10:13 PM CDT Gender Identity Not on file Sexual Orientation Not on file Last Filed Vital Signs Vital Sign Reading Time Taken Comments Blood Pressure 102/62 03/17/2025 3:30 PM DISTRICT ASSOCIATE JUDGE Pulse 81 03/17/2025 3:30 PM DISTRICT ASSOCIATE JUDGE Temperature 36.6 C (97.9 F) 03/17/2025 3:30 PM DISTRICT ASSOCIATE JUDGE Respiratory Rate 16 03/17/2025 3:30 PM DISTRICT ASSOCIATE JUDGE Oxygen Saturation 98% 03/17/2025 3:30 PM DISTRICT ASSOCIATE JUDGE Inhaled Oxygen Concentration - - Weight 74 kg (163 lb 1.6 oz) 03/17/2025 3:30 PM DISTRICT ASSOCIATE JUDGE Height 162.6 cm (5' 4) 03/17/2025 3:30 PM DISTRICT ASSOCIATE JUDGE Body Mass Index 28 03/17/2025 3:30 PM DISTRICT ASSOCIATE JUDGE Plan of Treatment Upcoming Encounters Date Type Department Care Team (Late st Contact Info) Description 03/25/2025 1:15 PM DISTRICT ASSOCIATE JUDGE Physical Therapy [facility] [address] [facility], [address] [address] Leroy Araujo MD [address] [address] Monica Alonzo, PT [place] 04/03/2025 2:00 PM DISTRICT ASSOCIATE JUDGE Physical Therapy [facility] [address], [place] [address] [address] Leroy Araujo MD [address] [address] Tiffanie White, PT [place] 04/15/2025 2:45 PM DISTRICT ASSOCIATE JUDGE Physical Therapy [facility] [address], [place] [address] [address] Leroy Araujo MD [address] [address] Monica Alonzo, PT [place] 04/22/2025 3:30 PM DISTRICT ASSOCIATE JUDGE Physical Therapy [facility] [address], [place] [address] [address] Leroy Araujo MD [address] [address] Monica Alonzo, PT [place] 04/29/2025 2:45 PM DISTRICT ASSOCIATE JUDGE Physical Therapy [facility] [address], [place] [address] [place] [address] Leroy Araujo MD [address] [place] [address] [place] [address] Monica Alonzo, PT [place] Health Maintenance Due Date Last Done Comments Hepatitis C Virus (HCV) Screening 1970 Hepatitis B Immunization (1 of 3 - 19+ 3-dose series) 07/15/1990 Cologuard 07/15/2016 Immunochemical Fecal Occult Blood 07/15/2016 Pneumococcal Immunization (50+ years) (1 of 1 - PCV) 07/15/2021 Respiratory Syncytial Virus (RSV) Immunization (Adult) (1 - Risk 50-74 years 1-dose series) 07/15/2021 Zoster Immunization (2 of 2) 05/10/2023 03/15/2023 Mammogram 06/01/2024 06/01/2023 SARS-COV-2 Immunization ( season) 2024 03/25/2023, 02/02/2022, 03/06/2021, Additional history exists Colonoscopy 07/25/2028 07/26/2023, 07/08, 07/26/2023 Colorectal Cancer Screening 07/25/2028 Td Immunization Every 10 Years (Adults With 1 Tdap) 06/12/2034 06/12/2024, 06/12/2009 Discussion re Starting/Frequency of Mammograms Discontinued 06/11/2023, 06/01/2023 DTaP/Tdap/Td Immunization Discontinued 06/12/2024, 09/2009 Influenza Immunization Completed , 06/12/2024, 05/08/2023, Additional history exists Human Papillomavirus (HPV) Immunization (No Doses Required) Completed Meningococcal Immunization (ACWY) Aged Out No longer eligible based on patient's age to complete this topic Rotavirus Immunization Aged Out No lo nger eligible based on patient's age to complete this topic Procedures Procedure Name Priority Date/Time Associated Diagnosis Comments GI IMAGING - COLONOSCOPY Routine 07/26/2023 9:48 AM CDT DELMA DIAG LEFT UNILATERAL DIGITAL W CAD W LORIN Routine 06/11/2023 2:36 PM DISTRICT ASSOCIATE JUDGE Abnormal mammogram [facility] SCREENING BILATERAL DIGITAL W CAD W LORIN Routine 06/01/2023 1:10 PM DISTRICT ASSOCIATE JUDGE Encounter for screening mammogram for malignant neoplasm of breast from Last 3 Months or Most Recently Relevant to Health Maintenance Results * GI IMAGING - COLONOSCOPY (07/26/2023 9:48 AM CDT) Luis Alfredo Torres MD [facility] DIAGNOSTIC ORDERABLES Final Result * DELMA DIAG LEFT UNILATERAL DIGITAL W CAD W LORIN (06/11/2023 2:36 PM DISTRICT ASSOCIATE JUDGE) Anatomical Region Laterality Modality breast Left Mammography 06/11/2023 1:52 PM DISTRICT ASSOCIATE JUDGE Narrative 06/11/2023 3:10 PM DISTRICT ASSOCIATE JUDGE - DELMA DIAG LEFT UNILATERAL DIGITAL W CAD W LORIN UNILATERAL LEFT DIGITAL DIAGNOSTIC MAMMOGRAM 3D/2D WITH CAD WITH MEDIOLATERAL MEDIOLATERAL OBLIQUE SPOT COMPRESSION: 06/11/2023 The study was acquired using digital technology and interpreted from soft copy. Current study was also evaluated with ICAD version 7.2. 2D digital mammographic views, as well as 3D digital tomosynthesis were performed in the CC and MLO projections. CLINICAL: Diagnostic study. Patient returns to evaluate an asymmetry in the left breast. COMPARISONS: Comparison is made to exam dated: 06/01/2023 [facility]. BREAST TISSUE:The tissue of left breast is heterogeneously dense. This may lower the sensitivity of mammography. FINDINGS: Spot-compression MLO, repeat MLO and full field 90 degree tomographic images were performed. The asymmetry noted on the screening study is not identifiable in any additional view. This was likely the consequence overlapping tissue. No significant masses, calcifications, or other findings are seen in the breast. IMPRESSION: BI-RAD 1 NEGATIVE There is no mammographic evidence of malignancy. Return to annual mammogram screening schedule is recommended. The results and recommendations were discussed with the patient. Electronically signed by: Kimberly Ernandez M.D. ab/:06/11/2023 14:50:24 National Account Executive(s): RT Wilber(R)(M), [facility] letter sent: Normal Exam Reading location: [facility] BI-RADS: 1 Negative Procedure Note Kimberly Ernandez MD - 06/11/2023 - DELMA DIAG LEFT UNILATERAL DIGITAL W CAD W LORIN UNILATERAL LEFT DIGITAL DIAGNOSTIC MAMMOGRAM 3D/2D WITH CAD WITH MEDIOLATERAL MEDIOLATERAL OBLIQUE SPOT COMPRESSION: 06/11/2023 The study was acquired using digital technology and interpreted from soft copy. Current study was also evaluated with ICAD version 7.2. 2D digital mammographic views, as well as 3D digital tomosynthesis were performed in the CC and MLO projections. CLINICAL: Diagnostic study. Patient returns to evaluate an asymmetry in the left breast. COMPARISONS: Comparison is made to exam dated: 06/01/2023 [facility]. BREAST TISSUE:The tissue of left breast is heterogeneously dense. This may lower the sensitivity of mammography. FINDINGS: Spot-compression MLO, repeat MLO and full field 90 degree tomographic images were performed. The asymmetry noted on the screening study is not identifiable in any additional view. This was likely the consequence overlapping tissue. No significant masses, calcifications, or other findings are seen in the breast. IMPRESSION: BI-RAD 1 NEGATIVE There is no mammographic evidence of malignancy. Return to annual mammogram screening schedule is recommended. The results and recommendations were discussed with the patient. Electronically signed by: Kimberly Ernandez M.D. ab/:06/11/2023 14:50:24 National Account Executive(s): Emily Steele RT(R)(M), [facility] letter sent: Normal Exam Reading location: [facility] BI-RADS: 1 Negative us Leroy Araujo MD IMG MAMMO ORDERABLES Final Re sult * DELMA SCREENING BILATERAL DIGITAL W CAD W LORIN (06/01/2023 1:10 PM DISTRICT ASSOCIATE JUDGE) Anatomical Region Laterality Modality breast Bilateral Mammography 06/01/2023 1:16 PM DISTRICT ASSOCIATE JUDGE Narrative 06/01/2023 3:25 PM DISTRICT ASSOCIATE JUDGE - DELMA SCREENING BILATERAL DIGITAL W CAD W LORIN BILATERAL DIGITAL SCREENING MAMMOGRAM 3D/2D WITH CAD WITH MEDIOLATERAL OBLIQUE CRANIOCAUDAL: 06/01/2023 The study was acquired using digital technology and interpreted from soft copy. Current study was also evaluated with ICAD version 7.2. 2D digital mammographic views, as well as 3D digital tomosynthesis were performed in the CC and MLO projections. CLINICAL: New baseline. Routine screening. Patient has no complaints. No personal history of cancer. Maternal aunt had breast cancer. COMPARISONS: No prior exams were available for comparison. BREAST TISSUE:The tissue of both breasts is heterogeneously dense. This may lower the sensitivity of mammography. FINDINGS: There is an asymmetry in the left breast middle depth superior region seen on the mediolateral oblique view only. No other significant masses, calcifications, or other findings are seen in either breast. IMPRESSION: BI-RAD 0 ADDITIONAL IMAGING EVALUATION NEEDED The asymmetry in the left breast is indeterminate. An immediate follow-up is recommended. A letter will be sent to the patient with these results. Electronically signed by: Colby galvan/aaron:06/01/2023 15:05:36 National Account Executive(s): RT Bessy(Janna)(M), [facility] letter sent: Additional Imaging Reading location: [facility] BI-RADS: 0 Additional Imaging Evaluation Needed Procedure Note Colby Wolfe MD - 06/01/2023 - DELMA SCREENING BILATERAL DIGITAL W CAD W LORIN BILATERAL DIGITAL SCREENING MAMMOGRAM 3D/2D WITH CAD WITH MEDIOLATERAL OBLIQUE CRANIOCAUDAL: 06/01/2023 The study was acquired using digital technology and interpreted from soft copy. Current study was also evaluated with ICAD version 7.2. 2D digital mammographic views, as well as 3D digital tomosynthesis were performed in the CC and MLO projections. CLINICAL: New baseline. Routine screening. Patient has no complaints. No personal history of cancer. Maternal aunt had breast cancer. COMPARISONS: No prior exams were available for comparison. BREAST TISSUE:The tissue of both breasts is heterogeneously dense. This may lower the sensitivity of mammography. FINDINGS: There is an asymmetry in the left breast middle depth superior region seen on the mediolateral oblique view only. No other significant masses, calcifications, or other findings are seen in either breast. IMPRESSION: BI-RAD 0 ADDITIONAL IMAGING EVALUATION NEEDED The asymmetry in the left breast is indeterminate. An immediate follow-up is recommended. A letter will be sent to the patient with these results. Electronically signed by: Colby galvan/aaron:06/01/2023 15:05:36 National Account Executive(s): RT Bessy(R)(M), [facility] letter sent: Additional Imaging Reading location: [facility] BI-RADS: 0 Additional Imaging Evaluation Needed Leroy Araujo MD IMG MAMMO ORDERABLES Final Re sult from Last 3 Months or Most Recently Relevant to Health Maintenance Insurance CLAIMS Care Teams Clinical Trials Manager Relationship Specialty Start Date End Date Leroy Araujo MD [address] [address] PCP - General Family Medicine 05/08/23 Christos Beltran MD [address] [place] [phone] Consulting Physician Neurology 07/06/21 Leslie Jones, CLASSICS PROFESSOR, EMERGENCY REGISTRAR [address] [place] [address] Nurse Practitioner Advanced Practice Nurse 01/18/22 Luis Alfredo Torres MD [address] [address] Consulting Physician Colon and Rectal Surgery 06/26/23
--- OUTSIDE RECORDS SUMMARY | 2025-03-24 15:45 | XMS_ITS | Encounter Summary ---
Author Organization [facility] Address [address] [place] [address] Phone Care Team Providers Care Forestry Professor Name Role Phone Christos Beltran MD Unavailable [phone] Leroy Araujo MD Primary Care Provider [phone] Leslie Jones APRN, COURT WORKER Unavailable + [phone] Luis Alfredo Torres MD Unavailable Reason for Visit * Reason Comments Medication Refill Encounter Details Date Type Department Care Team (Late st Contact Info) Description 07/06/2023 Refill [facility] - [place] [address] [place] [address] Leslie Jones, TUBING OILER, COURT WORKER [address] [place] [address] Medication Refill Social History Tobacco Use Types Packs/Day Years Used Date Smoking Tobacco: Never Smokeless Tobacco: Never Alcohol Use Standard Drinks/Week Comments Yes 0 (1 standard drink = 0.6 oz pur e alcohol) occasional PHQ-2 Answer Date Recorded Total Score - Questions 1-9 0 04/11 Sexually Active Control Partners Comments Yes Male Comments No Sex and Gender Information Value Date Recorded Sex Assigned at Not on file Legal Sex Female 10:13 PM CDT Gender Identity Not on file Sexual Orientation Not on file documented as of this encounter Miscellaneous Notes * Telephone Encounter - Berenice Cortez RN - 07/06/2023 8:19 AM CDT Medication(s) refilled and signed per [facility] Chronic Medication Refill Standing Order for Pediatricand Adult Patients. Requested Prescriptions Pending Prescriptions Disp Refills verapamil (CALAN,ISOPTIN) 40 MG Tablet [Pharmacy Med Name: VERAPAMIL 40MG TABLETS] 90 Tablet 3 Sig: Take 1 Tablet by mouth daily. Calcium-Channel Blockers Protocol Passed - 07/06/2023 3:59 AM Passed - BP on record in the past year Clinician-entered: BP Readings from Last 3 Encounters: 07/05/23 102/62 05/08/23 116/64 03/29/23 113/73 Patient-entered: No data recorded Passed - Visit with relevant provider in past 12 months or upcoming 90 days Recent Visits Date Type Provider Dept 05/08/23 Office Visit Leroy Araujo MD [facility] 01/15/23 Office Visit Christos Beltran MD [facility] 11/24/22 Office Visit Christos Beltran MD [facility] 09/13/22 Office Visit Leslie Jones APRN, PATRICIA [facility] Showing recent visits within past 365 days and meeting all other requirements Future Appointments Date Type Provider Dept 07/16/23 Appointment Christos Beltran MD [facility] Neu[facility] Showing future appointments within next 90 days and meeting all other requirements documented in this encounter Plan of Treatment Upcoming Encounters Date Type Department Care Team (Late st Contact Info) Description 03/25/2025 1:15 PM ROUTE SALES MANAGER Physical Therapy [facility] [address] [facility] [address] [place] [phone] Leroy Araujo MD [address]2 [facility] [address] [place] [address] Monica Alonzo, PT [place] 04/03/2025 2:00 PM ROUTE SALES MANAGER Physical Therapy [facility] [address] [facility], [place] [address] [place] [address] Leroy Araujo MD [address] [address] Tiffanie White, PT [place] 04/15/2025 2:45 PM ROUTE SALES MANAGER Physical Therapy [facility] [address] [facility], [place] [address] [place] [address] Leroy Araujo MD #[address] [address] Monica Alonzo, PT [place] 04/22/2025 3:30 PM ROUTE SALES MANAGER Physical Therapy [facility] at [address], [place] [address] [address] Leroy Araujo MD [address] [address] Monica Alonzo, PT [place] 04/29/2025 2:45 PM ROUTE SALES MANAGER Physical Therapy [facility] [address], [place] [address] [address] Leroy Araujo MD [address] [address] Monica Alonzo, PT [place] documented as of this encounter Visit Diagnoses Not on filedocumented in this encounter Additional Health Concerns Assessment Noted Time PHQ-9 Depression Total Score: 0 05/08/19 24 6:15 PM ROUTE SALES MANAGER documented as of this encounter Care Teams Forestry Professor Relationship Specialty Start Date End Date Leroy Araujo MD [address] [address] PCP - General Family Medicine 05/08/23 Christos Beltran MD [address] [place] [address] Consulting Physician Neurology 07/06/21 Leslie Jones, TUBING OILER, COURT WORKER [address] [place] [address] Nurse Practitioner Advanced Practice Nurse 01/18/22 Luis Alfredo Torres MD #[address] [address] Consulting Physician Colon and Rectal Surgery 06/26/23 documented as of this encounter
--- OUTSIDE RECORDS SUMMARY | 2025-03-24 15:45 | XMS_ITS | Clinical Summary ---
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 This disclosure is being madepursuant to the Care Everywhere program and may not contain all information available regarding this patient. Last updated 17.[facility] [employer] Allergies No known active allergies Medications * Be aware that medications may not be up to date on this document. Alwaysverify current medications with the patient. escitalopram (LEXAPRO) 10 MG tablet Take 10 mg by mouth once daily 1 Active meloxicam (MOBIC) 15 MG tablet Take 15 mg by mouth once daily 1 Active omeprazole (PRILOSEC) 20 MG capsule Take 20 mg by mouth as needed 1 Active multivitamin daily tablet Take 1 tablet by mouth daily with food Active acetaminophen (TYLENOL) 325 MG tablet Take 325 mg by mouth as needed for Fever or Pain Maximum allowable Acetaminophen amount = 4 Grams (4000 mg) / 24 hours. Active Active Problems No known active problems Social History Tobacco Use Types Packs/Day Years Used Date Smoking Tobacco: Never Smokeless Tobacco: Never Alcohol Use Standard Drinks/Week Comments Yes 0 (1 standard drink = 0.6 oz pur e alcohol) Comments Unknown Sex and Gender Information Value Date Recorded Sex Assigned at Not on file Legal Sex Female 8:50 AM CDT Gender Identity Not on file Sexual Orientation Not on file Last Filed Vital Signs Vital Sign Reading Time Taken Comments Blood Pressure 100/60 11/01/2021 2:46 PM CDT Pulse 61 04/27/2021 2:35 PM [employer] Temperature 36.8 C (98.2 F) 04/27/2021 2:35 PM [employer] Respiratory Rate - - Oxygen Saturation 98% 12/01/2020 1:04 PM CDT Inhaled Oxygen Concentration - - Weight 71.7 kg (158 lb) 11/01/2021 2:46 PM CDT Height 162.6 cm (5' 4) 11/01/2021 2:46 PM CDT Body Mass Index 27.12 11/01/2021 2:46 PM CDT Plan of Treatment Health Maintenance Due Date Last Done Comments COLOGUARD (AGES 45-75) - COLON CA SCREENING 1971 COLON MONITORING 1971 COLONOSCOPY - COLON CA SCREENING 1971 CT COLONOGRAPHY - COLON CA SCREENING 1971 Colorectal Cancer Screening 1971 FIT - COLON CA SCREENING 1971 FLEX SIG - COLON CA SCREENING 1971 LIPID TESTING 1971 MAMMOGRAM 1971 HIV SCREENING 07/15/1986 HEPATITIS C SCREENING 07/11/1989 DTAP/TDAP/TD VACCINES (1 - Tdap) 07/15/1990 HEPATITIS B VACCINE (1 of 3 - 19+ 3-dose series) 07/15/1990 SCREENING FOR DIABETES 04/27/2021 PNEUMOCOCCAL VACCINE 50+ (1 of 1 - PCV) 07/15/2021 ZOSTER VACCINE (1 of 2) 07/15/2021 DEPRESSION SCREENING 04/09/2024 COVID-19 VACCINE (1 - 2024- season) 2024 INFLUENZA VACCINE (#1) 2024 0, 04/19/2017, 03/15/2012, Additional history exists HIB VACCINE Aged Out No longer eligi ble based on patient's age to complete this topic HPV VACCINE Aged Out No longer eligi ble based on patient's age to complete this topic MENINGOCOCCAL (Group B) VACCINE SHARED DECISION-MAKING Aged Out No longer eligible based on patient's age to complete this topic MENINGOCOCCAL GROUPS A/C/Y/W VACCINE Aged Out No longer eligible based on patient's age to complete this topic Insurance Care Teams Hardening Machine Operator Relationship Specialty Start Date End Date Chase Cobb MD [address] [place] [address] PCP - General Family Medicine 10/25/21
== END 2025-03-24 13:34 | disposition home or self-care (01) ==
PROVIDERS: PCP Family Medicine; Visit Provider Internal Medicine
DX: M54.50 Low back pain, unspecified (principal); M53.3 Sacrococcygeal disorders, not elsewhere classified
CPT/HCPCS: 72110; 72202